=== PATIENT | female | born 1990 | race Caucasian/White ===

== ENCOUNTER 2020-11-04 11:52 | Outpatient (REF) | payer OTHER, SELFPAY ==
[2020-11-05 01:26] LABS: Rubella IgG Antibody 4.12 Index
[2020-11-05 04:31] LABS: HBc Num1 0.11 S/CO (0.00-0.79); Hepatitis B Core Antibody Nonreactive (Nonreactive)
[2020-11-05 04:46] LABS: HBS Num1 8.22 mIU/mL (0-7.99); HBsAGNum1 0.37 S/CO (0.00-0.99); Hepatitis B Surface Antigen Negative (Negative)
[2020-11-05 05:28] LABS: HBS Num2 8.22 mIU/mL (0-7.99); HBS Num3 7.64 mIU/mL (0-7.99); ~Hepatitis B Surface Antibody GRAYZONE (Nonreactive)
[2020-11-09 10:52] LABS: TS Negative Control Passed; TS Panel A 0; TS Panel B 0; TS Positive Control Passed; TSpotTB Negative (SeeBelow)
== END 2020-11-04 11:53 | disposition home or self-care (01) ==
LOC: HO.LAB 11:52
PROVIDERS: PCP Internal Medicine; Visit Provider Internal Medicine
DX: Z01.84 Encounter for antibody response examination (principal)
CPT/HCPCS: 36415; 86481; 86704; 86706; 86735; 86762; 86765; 86787; 87340

== ENCOUNTER 2020-12-31 06:52 | Outpatient (REF) | payer OTHER, SELFPAY ==
[2020-12-31 07:15] LABS: MANUAL DIFF FLAG NO
[2020-12-31 07:18] LABS: Glucose Urine UA NEG (NEG); Leukocyte Esterase Urine NEG (NEG); Nitrite Urine NEG (NEG); Specific Gravity - Urine 1.025 (1.005-1.025); Urine Blood 3+ (NEG); Urine Ketones NEG (NEG); Urine Protein NEG (NEG-TRACE)
[2020-12-31 07:19] LABS: Basophils Absolute Auto 0.1 X10*3/uL (0.0-0.2); Basophils Percent Auto 0.6 % (0-2); Eosinophils Absolute Auto 0.4 X10*3/uL (0.0-0.4); Eosinophils Percent Auto 4.3 % (0-4); Hematocrit 40.3 % (37-47); Hemoglobin 13.5 g/dl (12.0-16.0); Imm Gran Abs Auto 0.03 X10*3/uL (0.00-0.03); Imm Gran Pct Auto 0.4 % (0.0-0.4); Lymphocytes Absolute Auto 3.3 X10*3/uL (1.2-4.9); Mean Corpuscular HGB Conc 33.5 g/dl (31.0-35.0); Mean Corpuscular Hemoglobin 30.6 pg (27.0-33.0); Mean Corpuscular Volume 91.4 fL (80-98); Mean Platelet Volume 10.1 fL (9.4-12.3); Monocytes Absolute Auto 0.4 X10*3/uL (0.1-1.2); Monocytes Percent Auto 5.1 % (2-11); Neutrophils Absolute Auto 4.3 X10*3/uL (2.0-8.3); Neutrophils Percent Auto 50.6 % (45-73); Platelet Count 316 X10*3/uL (160-400); Red Blood Count 4.41 X10*6/uL (4.20-5.50); Red Cell Distribution Width 12.8 % (11.0-16.0); White Blood Count 8.6 X10*3/uL (4.8-10.8)
[2020-12-31 07:26] LABS: Appearance Urine CLEAR; Color Urine YELLOW
[2020-12-31 08:01] LABS: Alanine Aminotransferase 11 U/L (0-31); Albumin Level 3.8 g/dL (3.5-5.0); Alkaline Phosphatase 68 U/L (39-117); Anion Gap 12 (12-20); Aspartate Amino Transferase 11 U/L (5-31); Bilirubin Total 0.4 mg/dL (0.0-1.0); Blood Urea Nitrogen 12 mg/dL (9-16); Carbon Dioxide 24 mmol/L (22-29); Chloride 110 mmol/L (96-108); Cholesterol 222 mg/dL; Estimated Glomerular Filt Rate > 60; Glucose Fasting 91 mg/dL (60-99); HDL Cholesterol 50 mg/dL; LDL Cholesterol Calculated 129 mg/dl; Potassium 4.1 mmol/L (3.3-5.1); Sodium 142 mmol/L (135-145); Total Protein 6.8 g/dL (6.5-8.0); Triglycerides 218 mg/dL
[2020-12-31 08:21] LABS: TSH reflex Free T4 1.33 uIU/mL (0.32-4.0)
[2020-12-31 08:46] LABS: Mucus Urine TRACE /LPF; Squamous Epithelial Cell Urine TRACE /LPF; WBC Urine 0-2 /HPF (0-4)
== END 2020-12-31 06:53 | disposition home or self-care (01) ==
LOC: HO.LAB 06:52
PROVIDERS: PCP Internal Medicine; Visit Provider Internal Medicine
DX: Z00.00 Encounter for general adult medical examination without abnormal findings (principal); E78.00 Pure hypercholesterolemia, unspecified; E66.9 Obesity, unspecified
CPT/HCPCS: 36415; 80053; 80061; 81001; 84443; 85025

== ENCOUNTER 2021-07-02 08:54 | Outpatient (REF) | payer OTHER, SELFPAY | END 2021-07-02 08:55 | disposition home or self-care (01) | LOC: HO.LAB 08:54 | PROVIDERS: PCP Internal Medicine; Visit Provider Internal Medicine | DX: Z20.822 Contact with and (suspected) exposure to COVID-19 (principal) | CPT/HCPCS: C9803; U0003; U0005 ==

== ENCOUNTER 2023-05-01 08:50 | Outpatient (AMB) | payer OTHER, SELFPAY ==
[2023-05-01 08:53] VITALS: BP 122/80; PULSE 87; O2SAT 99; BMI 35.7
--- NOTE | 2023-05-01 08:53 | MHC.PC.OV ---
Vital Signs 05/01/23 08:53 Height 5 ft 2 in Weight 195 lb 4 oz BMI 35.7 BP 122/80 Blood Pressure Location Lt brachial Position Sitting Pulse 87 Pulse Source Pulse Oximeter Pulse Oximetry (%) 99 Oxygen Delivery Method Room Air Intake Visit Reasons: pe Motors And Controls Tester Required: No Accompanied by: Self / Same As Patient Allergies bee sting Allergy (Severe, Uncoded 05/01/23 09:51) Anaphylaxis Medication List - Last Reconciled 05/01/23 by Karl Marquez MD albuterol sulfate 90 mcg/actuation (ProAir HFA) 2 puffs inhalation Q6H PRN 30 days epinephrine (EpiPen 2-Heladio) 0.3 mg (0.3 mL) IM Q4H PRN loratadine 10 mg PO DAILY PRN 90 days Tobacco use date assessed: 05/01/23 Dental Screening Dental Screen Date: 05/01/23 Did you have a dental visit in the last 12 months?: Yes Did you have a dental problem in the last 6 months where you did not have access to dental care?: No Was dental information given to patient?: Patient has dentist HPI pe HPI Details Patient comes in today for her annual physical examination States that she feels okay She denies any headaches or dizziness Denies any chest pains, no SOB - notes that her asthma and allergies have been well-controlled lately and she hardly has to use her rescue inhaler lately No nausea/vomiting, no abdominal pain No change in bowel habits noted Denies any acute urinary symptoms States that she sleeps well at night Had her pap smear / stave and bolt equalizer exam and some labs done at [facility] about 3 months ago - was reportedly told that her labs came out okay States that she will try to get those reports sent over to us for review so she does not have to get any more labs done if she does not need to [facility] Medical History Bee sting allergy Pure hypercholesterolemia Allergic rhinitis WILFREDO II (cervical intraepithelial neoplasia II) Anxiety and depression Migraine Lumbar arthropathy Obesity (BMI 30-39.9) Asthma Vitamin D deficiency Surgical History History of excision of mass History of nasal polypectomy History of D&C Family History Father Hypertension CVD (cardiovascular disease) Lymphoma Past heart attack Mother Hypertension Epilepsy Son ADHD Brother Epilepsy Sister Epilepsy Maternal Grandmother Diabetes Paternal Grandmother No problems noted. Maternal Uncle Diabetes Maternal Aunt Diabetes Paternal Aunt Diabetes Breast cancer Daughter In good health Social History Housing: House Alcohol intake: current Alcohol intake frequency: holidays/special occasions only Patient Tobacco Use Status: Former Tobacco user Tobacco use type: Cigarette Second Hand Smoke Exposure: Yes Substance Use Type: Marijuana service: No Current occupational status: employed ([employer]) Cognitive needs: No Hearing needs: No Vision needs: Yes Questionnaire PHQ-9 Over the last 2 weeks, how often have you been bothered by any of the following problems? 1. Little interest or pleasure in doing things: not at all 2. Feeling down, depressed, or hopeless: not at all 3. Trouble falling or staying asleep, or sleeping too much: not at all 4. Feeling tired or having little energy: not at all 5. Poor appetite or overeating: not at all 6. Feeling bad about yourself - or that you are a failure or have let yourself or your family down: not at all 7. Trouble concentrating on things, such as reading the newspaper or watching television: not at all 8. Moving or speaking so slowly that other people could have noticed. Or the opposite - being so fidgety or restless that you have been moving around a lot more than usual: not at all 9. Thoughts that you would be better off or of hurting yourself in some way: not at all Total score: 0 Depression Screening Interpretation: Negative [id number] - PHQ-9 Billing: Yes Source: Developed by Drs. Eamon Barr, Amarilis Greenberg, Ricky Perez and colleagues, with an educational julio from [employer]. Thrive Questionnaire Date Thrive assessed: 05/01/23 I am a: Patient What is your living situation today?: I have a steady place to live Within the past 12 months, did the food you bought not last and you didn't have the money to get more?: Never true Within the past 12 months, did you worry whether your food would run out before you got money to buy more?: Never true Do you have trouble paying for medicines?: No Do you have trouble getting transportation to medical appointments?: No Do you have trouble paying your heating and electricity bill?: No Do you have trouble taking care of your child, family member or friend?: No Do you have trouble with day-to-day activities such as bathing, preparing meals, shopping, managing finances, etc.?: No Are you currently unemployed and looking for a job?: No Are you interested in more education?: No Please select the resources that you would like help with: None Currently or been in a relationship where the following occur: no concerns reported AUDIT C Alcohol Use Questionnaire (AUDIT-C) 1. How often do you have a drink containing alcohol?: Monthly or less 2. How many drinks containing alcohol do you have on a typical day when you are drinking?: 1 or 2 3. How often do you have six or more drinks on one occasion?: Never Total Score: 1 Score Reviewed/Action Taken: Yes RODNEY-7 AMB Questionnaire RODNEY-7 Date RODNEY - 7 assessed: 05/01/23 Feeling nervous, anxious, or on edge: 0 = Not at all Not being able to stop or control worryin = Not at all Worrying too much about different things: 0 = Not at all Trouble relaxin = Not at all Being so restless that it is hard to sit still: 0 = Not at all Becoming easily annoyed or irritable: 0 = Not at all Feeling afraid as if something awful might happen: 0 = Not at all Total RODNEY-7 score (0-4 normal; 5-9 mild; 10-14 moderate; 15-21 severe): 0 Source: Developed by Drs. Eamon Barr, Amarilis Greenberg, Ricky Perez and colleagues, with an educational julio from [employer]. Review of Systems Const Denies chills, Denies fatigue, Denies fever(s), Denies headache(s) and Denies malaise Eyes Denies blurry vision, Denies change in vision, Denies irritation and Denies itchy eyes ENT Denies dysphagia, Denies dizziness, Denies otalgia, Denies headache(s), Denies nasal congestion, Denies neck pain, Denies odynophagia, Denies sinus pain and Denies sore throat Card Denies chest pain, Denies rapid heart rate, Denies irregular heart rhythm, Denies palpitations and Denies dyspnea Resp Denies chest congestion, Denies cough, Denies dyspnea and Denies wheezing GI Denies abdominal pain, Denies bloating, Denies constipation, Denies dysphagia, Denies heartburn, Denies diarrhea, Denies nausea, Denies odynophagia and Denies vomiting Denies hematuria, Denies urinary frequency, Denies dysuria, Denies urinary incontinence and Denies urinary urgency Musc Denies back pain, Denies arthralgias, Denies joint swelling, Denies muscle weakness and Denies neck pain Skin/Breast Denies breast pain, Denies breast mass, Denies change in pigmentation, Denies lesions, Denies rash and Denies unusual bruising Neuro Denies dizziness, Denies headache(s) and Denies paresthesias Psych Denies anxiety and Denies depression Endo Denies fatigue and Denies palpitations [place]/Lymph Denies easy bruising Aller/Immun Denies itchy eyes and Denies wheezing Physical exam (Primary Care) Vital Signs: Last Vital Signs Pulse 87 05/01/23 08:53 BP 122/80 05/01/23 08:53 Pulse Ox 99 05/01/23 08:53 Oxygen Delivery Method Room Air 05/01/23 08:53 BMI result Body Mass Index 35.7 Tobacco/Smoking Status: Tobacco use Status Tobacco use date assessed 05/01/23 05/01/23 08:58 Patient Tobacco Use Status Former Tobacco user 05/01/23 08:58 Tobacco use type Cigarette 05/01/23 08:58 PHQ-9: PHQ-9 Score PHQ-9: Total score 0 05/01/23 09:55 Depression Screening Interpretation: Negative Thrive Assessment: Date of Thrive Assessment Date Thrive assessed 05/01/23 05/01/23 08:58 Currently or been in a relationship where the following occur: no concerns reported Const General: no acute distress, alert and awake Orientation/consciousness: patient oriented x3 HENMT Head: Yes normocephalic and Yes atraumatic Ears: external ears normal, TM's normal bilaterally and EAC's normal General nose exam: No nasal discharge present Face and sinus: Yes normal facial exam and Yes sinuses nontender Teeth and gingiva: dentition normal Throat: Yes posterior oropharynx normal and Yes tonsils normal (no TP congestion) Eyes Eyelids: Yes eyelids normal Conjunctivae: conjunctivae normal Pupils: Equal, round and reactive pupils present EOM: EOMs intact bilaterally Neck Neck: Yes no lymphadenopathy and Yes supple Thyroid: Thyroid normal Resp Auscultation: clear to auscultation bilaterally, no rales and no wheezes Cardio Rate: regular rate Rhythm: regular rhythm Heart sounds: no murmurs GI Palpation (GI): Soft to palpation, nontender and No hepatosplenomegaly present Auscultation: normal bowel sounds General: Yes no CVA tenderness Back/Spine/Pelvis Back: no CVA tenderness Thoracic/Lumbar Spine: thoracic and lumbar spine normal to inspection Skin Lesions: no lesions Rashes: no rashes Neuro General: patient oriented x3, moves all extremities, no focal motor deficits and CN's II-XI intact bilaterally Cranial nerves: Yes Equal, round and reactive pupils present Cognition (Neuro): normal cognition Gait exam (Neuro): Normal gait present Extrem General: Yes no clubbing, cyanosis or edema Office Procedures Flu Questionnaire Does the patient have a severe egg allergy?: No Immunizations flu vacc [id number] 6mos up(PF) 60 mcg(15 mcgx4)/0.5 mL IM syringe Performing Provider: Karl Marquez MD [facility] Documented (not given) by: Allyssa Bonilla on 05/01/23 08:59 Reason Not Given: Received Previously Assessment and Plan Assessment & Plan (1) Annual physical exam: Code(s): Z00.00 - Encounter for general adult medical examination without abnormal findings Plan: Patient reportedly had some labs done at [facility] about 3 months ago and was told that her labs came out okay States that she will try to arrange for these to be sent over to us for review and prefers not to have any more labs done unless she has to She is up-to-date with her annual stave and bolt equalizer exam and pap smear - just had them done at [facility] 3 months ago States that she already received her flu shot from [facility] a couple of weeks ago (2) Asthma: Code(s): J45.909 - Unspecified asthma, uncomplicated Qualifiers: Asthma severity: mild Asthma persistence: intermittent Asthma complication type: uncomplicated Qualified Code(s): J45.20 - Mild intermittent asthma, uncomplicated Plan: Stable Continue Albuterol HFA 2 inhalations every 6 hours as needed - states that she has not had to use her inhaler in a while now (3) Migraine: Code(s): G43.909 - Migraine, unspecified, not intractable, without status migrainosus Qualifiers: Migraine type: unspecified Status migrainosus presence: without status migrainosus Intractability: not intractable Qualified Code(s): G43.909 - Migraine, unspecified, not intractable, without status migrainosus Plan: Stable Reinforced avoidance of migraine triggers Was taking Fioricet or OTC migraine headache meds PRN for symptomatic relief - states that she only has about 1 to 2 episodes of headaches a month and they are mostly mild and she has not needed to take any Rx so far lately (4) Pure hypercholesterolemia: Code(s): E78.00 - Pure hypercholesterolemia, unspecified Plan: Reinforced low cholesterol diet LDL cholesterol was at 129 mg/dl when last checked a couple of years ago Will try to obtain a copy of her recent lab results done at [facility] about 3 months ago for review Advised patient that if her labs done a few months ago did not include a cholesterol level, then we may still need her to go and get some additional labs done (5) Allergic rhinitis: Code(s): J30.9 - Allergic rhinitis, unspecified Qualifiers: Allergic rhinitis trigger: pollen Allergic rhinitis seasonality: seasonal Qualified Code(s): J30.1 - Allergic rhinitis due to pollen Plan: Continue Loratadine 10 mg QD PRN (6) Bee sting allergy: Code(s): Z91.030 - Bee allergy status Plan: Cautioned again that avoidance is still the best prevention and reminded that she needs to keep her Epipen injector with her at all times (7) Anxiety and depression: Code(s): F41.9 - Anxiety disorder, unspecified; F32.9 - Major depressive disorder, single episode, unspecified Plan: Follow up with therapist/counselor regularly as scheduled Used to take Escitalopram but states that she stopped taking this a couple of years ago and now just smokes some marijuana when needed to help control her anxiety (8) Obesity (BMI 30-39.9): Code(s): E66.9 - Obesity, unspecified Plan: Reinforced diet/exercise as tolerated/lose weight Plan To return in 1 year for her next annual physical examination Orders: Orders Influenza [id number] Immunization Today Z23 - Encounter for immunization Coding Level of Care Code Est Pt Prev Care 18-39y([id number]) Diagnoses Annual physical exam Z00.00 Mild intermittent asthma without complication J45.20 Asthma severity: mild Asthma persistence: intermittent Asthma complication type: uncomplicated Migraine without status migrainosus, not intractable, unspecified migraine type G43.909 Migraine type: unspecified Status migrainosus presence: without status migrainosus Intractability: not intractable Pure hypercholesterolemia E78.00 Seasonal allergic rhinitis due to pollen J30.1 Allergic rhinitis trigger: pollen Allergic rhinitis seasonality: seasonal Bee sting allergy Z91.030 Anxiety and depression F41.9; F32.9 Obesity (BMI 30-39.9) E66.9
== END 2023-05-01 09:55 | disposition home or self-care (01) ==
PROVIDERS: PCP Internal Medicine; Visit Provider Internal Medicine
DX: Z00.00 Encounter for general adult medical examination without abnormal findings (principal); J45.20 Mild intermittent asthma, uncomplicated; G43.909 Migraine, unspecified, not intractable, without status migrainosus; E78.00 Pure hypercholesterolemia, unspecified; J30.1 Allergic rhinitis due to pollen; F41.9 Anxiety disorder, unspecified
CPT/HCPCS: 99395

== ENCOUNTER 2023-07-19 08:52 | Outpatient (AMB) | payer OTHER, SELFPAY ==
[2023-07-19 08:57] VITALS: BP 116/76; RESP 17; BMI 35.7
--- NOTE | 2023-07-19 08:57 | A.OFFPC_ITS ---
Vital Signs 07/19/23 08:57 Height 5 ft 2 in Weight 195 lb 4 oz BMI 35.7 BP 116/76 Blood Pressure Location Lt brachial Position Sitting Respiration 17 Pulse Source Pulse Oximeter Oxygen Delivery Method Room Air Intake Visit Reasons: Left knee pain Intake Note: Pt is here for Left knee pain since 30 of June. Director Of Transportation Required: No Accompanied by: Self / Same As Patient Is last menstrual period known: Yes Last menstrual period: 06/17/23 Allergies bee sting Allergy (Severe, Uncoded 07/19/23 09:33) Anaphylaxis Medication List - Last Reconciled 07/19/23 by Mario Morales PA-C albuterol sulfate 90 mcg/actuation (ProAir HFA) 2 puffs inhalation Q6H PRN 30 days epinephrine (EpiPen 2-Heladio) 0.3 mg (0.3 mL) IM Q4H PRN loratadine 10 mg PO DAILY PRN 90 days Tobacco use date assessed: 05/01/23 Dental Screening Dental Screen Date: 07/19/23 Did you have a dental visit in the last 12 months?: Yes Did you have a dental problem in the last 6 months where you did not have access to dental care?: No Was dental information given to patient?: Patient has dentist HPI Left knee pain HPI Details Patient is a 33-year-old female here today for problem visit. She reports having left knee pain over the last 3 weeks. She reports an incident where she hyperflexed her left knee and has since had di scomfort in the anterior aspect of her left knee. She reports no pain though has a weird sensation over her left knee when flexing. She has not done any ofou-jmo-yoftnby NSAIDs or cool compress at this time. [facility] Medical History Bee sting allergy Pure hypercholesterolemia Allergic rhinitis WILFREDO II (cervical intraepithelial neoplasia II) Anxiety and depression Migraine Lumbar arthropathy Obesity (BMI 30-39.9) Asthma Vitamin D deficiency Surgical History History of excision of mass History of nasal polypectomy History of D&C Family History Father Hypertension CVD (cardiovascular disease) Lymphoma Past heart attack Mother Hypertension Epilepsy Son ADHD Brother Epilepsy Sister Epilepsy Maternal Grandmother Diabetes Paternal Grandmother No problems noted. Maternal Uncle Diabetes Maternal Aunt Diabetes Paternal Aunt Diabetes Breast cancer Daughter In good health Social History Housing: House Alcohol intake: current Alcohol intake frequency: holidays/special occasions only Patient Tobacco Use Status: Former Tobacco user Tobacco use type: Cigarette e-Cigarette/Vaping Use: Never Used Second Hand Smoke Exposure: Yes Substance Use Type: Marijuana service: No Current occupational status: employed ([employer]) Cognitive needs: No Hearing needs: No Vision needs: Yes Female Reproductive History Menstrual Date of last menstrual period: 06/17/23 Questionnaire Thrive Questionnaire Date Thrive assessed: 05/01/23 RODNEY-7 AMB Questionnaire RODNEY-7 Date RODNEY - 7 assessed: 05/01/23 Source: Developed by Drs. Eamon Barr, Amarilis Greenberg, Ricky Perez and colleagues, with an educational julio from [employer]. Review of Systems Const Denies headache(s) Eyes Denies loss of vision ENT Denies vertigo, Denies dizziness, Denies headache(s) and Denies sore throat Card Denies chest pain, Denies leg edema and Denies lightheadedness Resp Denies cough, Denies hemoptysis and Denies wheezing GI Denies abdominal pain, Denies melena, Denies constipation, Denies diarrhea and Denies vomiting Denies urinary frequency, Denies dysuria and Denies urinary urgency Musc Denies arthralgias, Denies joint swelling, Denies numbness and Denies tingling Neuro Denies Abnormal speech present, Denies behavioral changes, Denies vertigo, Denies dizziness, Denies headache(s), Denies loss of vision, Denies memory loss, Denies numbness and Denies tingling Psych Denies anxiety, Denies behavioral changes, Denies depression, Denies memory loss and Denies panic attacks [place]/Lymph Denies easy bleeding and Denies easy bruising Aller/Immun Denies wheezing Physical exam (Primary Care) Vital Signs: Last Vital Signs Resp 17 07/19/23 08:57 BP 116/76 07/19/23 08:57 Oxygen Delivery Method Room Air 07/19/23 08:57 BMI result Body Mass Index 35.7 Tobacco/Smoking Status: Tobacco use Status Tobacco use date assessed 05/01/23 07/19/23 08:58 Patient Tobacco Use Status Former Tobacco user 07/19/23 08:58 Tobacco use type Cigarette 07/19/23 08:58 e-Cigarette/Vaping Use Never Used 07/19/23 09:24 Thrive Assessment: Date of Thrive Assessment Date Thrive assessed 05/01/23 07/19/23 08:58 Const General: healthy appearing, no acute distress, alert and awake Nutritional Appearance: well nourished Orientation/consciousness: oriented to person, oriented to place and oriented to time HENMT Ears: TM's normal bilaterally General nose exam: Normal nasal mucous membranes and turbinates present Eyes Conjunctivae: conjunctivae normal Sclerae: sclerae normal Pupils: Equal, round and reactive pupils present Neck Neck: Yes no lymphadenopathy and Yes no JVD Thyroid: Thyroid normal Carotids: no bruits Resp Effort & Inspection: normal respiratory effort and not tachypneic Auscultation: no crackles, no rales, no rhonchi and no wheezes Cardio Rate: regular rate Rhythm: regular rhythm Heart sounds: no murmurs and normal S1 and S2 GI Palpation (GI): Soft to palpation, nontender, no hepatomegaly and no splenomega ly Auscultation: normal bowel sounds Skin General skin exam: no rashes or lesions noted and dry skin Neuro General: oriented to person, oriented to place and oriented to time Cranial nerves: Yes Equal, round and reactive pupils present Speech: No Abnormal speech present Gait exam (Neuro): Normal gait present Motor exam (neuro): no tremor noted Extrem Right upper extremity: full ROM Left upper extremity: full ROM Right lower extremity: full ROM; no edema Left lower extremity: full ROM; no edema Psych Mental Status: mental status grossly normal Speech and movement: Normal speech and movement present Affect: normal affect Attitude: cooperative Thought process: Normal thought process present Assessment and Plan Assessment & Plan (1) Patella-femoral syndrome: Code(s): M22.2X9 - Patellofemoral disorders, unspecified knee Qualifiers: Laterality: left Qualified Code(s): M22.2X2 - Patellofemoral disorders, left knee Plan: Patient with a 3 week history left knee discomfort worse when going up and down stairs and flexing the knee. Labs and symptoms are concerning for tendon issue in the anterior aspect of the knee. Will likely benefit from physical therapy. Will send for x-ray to evaluate for joint effusion. Will supply her with diclofenac , advised on cool compress and resting the knee. Orders: Orders XR knee LT 3V Today M22.2X2 - Patellofemoral disorders, left knee PT Evaluation and Treatment Today M22.2X2 - Patellofemoral disorders, left knee Medications: New diclofenac sodium 75 mg PO BID 10 days 20 tabs 0RF M22.2X2 - Patellofemoral disorders, left knee Coding Level of Care Code Est Pt Level 3 (32988) Diagnoses Patellofemoral pain syndrome of left knee M22.2X2 Laterality: left
== END 2023-07-19 10:33 | disposition home or self-care (01) ==
PROVIDERS: PCP Internal Medicine; Visit Provider Physician Assistant
DX: M22.2X2 Patellofemoral disorders, left knee (principal)
CPT/HCPCS: 99213

== ENCOUNTER 2023-07-19 09:48 | Outpatient (REF) | payer OTHER, SELFPAY ==
--- NOTE | ~2023-07-19 | XR_ITS ---
EXAMINATION: XR KNEE, LEFT CLINICAL INFORMATION: Patellofemoral disorder. COMPARISON: Radiographs dated 11/19/2011. TECHNIQUE: AP, lateral and sunrise views of the left knee are submitted. FINDINGS: No fracture or joint effusion. Alignment is anatomic. Joint spaces are maintained. No abnormal soft tissue calcification. XR/XR knee LT 3V IMPRESSION: Normal left knee.
== END 2023-07-19 09:49 | disposition home or self-care (01) ==
LOC: HO.XRAY 09:48
PROVIDERS: PCP Internal Medicine; Visit Provider Physician Assistant
DX: M22.2X2 Patellofemoral disorders, left knee (principal)
CPT/HCPCS: 73562

== ENCOUNTER 2023-11-01 09:00 | Outpatient (RCR) | payer OTHER, SELFPAY ==
--- NOTE | 2023-09-21 11:39 | MHC.PT.EP ---
[facility] [place] Office [place] Office [place] Office [address] [phone] F: [phone] F: [phone] F: [phone] F: [phone] Physical Therapy Plan of Care Date of Evaluation: 09/20/23 Date of Surgery: Diagnosis: LEFT knee patellofemoral knee pain (MD Dx) (RS) Assessment: Patient is a pleasant 33 y.o. female who is referred to PT by Mario Morales PA-C, with Dx of LEFT knee patellofemoral pain. She does present with muscle imbalances in L knee and hip, causing compensation and likely bursitis when injury first occurred. Patient impairments include antalgic gait, weakness, pain upon palpation.Patient current functional limitations are squatting, ascend/descend stairs, sit to stand after prolonged sitting. Patient will benefit from skilled PT to address aforementioned impairments and functional limitations to meet established goals. Frequency and Duration: The patient will be seen 2x/week for 4 weeks Short Term Goals: 2 weeks Patient demonstrates consistency and independence with HEP to self manage symptoms. 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 Patient presents with increased LEFT hip glute med strength 5/5 to be able to ascend/descend 1 flight of stairs reciprocally. Treatment Plan: Modalities to reduce pain, spasms and effusion. Manual therapy to restore motion and function. Therapeutic exercise to improve strength and flexibility. Neuromuscular re-education for posture and balance. Therapeutic activities to return to functional activities of daily living. Electronically signed by: Ofelia Hart, PT, DPT Please sign and return to therapist. Thank you for your referral.
--- NOTE | 2023-11-01 09:59 | MHC.PT.DC ---
[facility] [place] Office [place] Office [place] Office [address] [phone] F: [phone] F: [phone] F: [phone] F: [phone] Physical Therapy Discharge Report Diagnosis: LEFT knee patellofemoral knee pain ( Dx) (RS) Date of Surgery: Date of Evaluation: 09/20/23 Date of Discharge: 11/01/23 Treatments to Date: 6 Cancellations to Date: No Shows to Date: Discharge Status: Achieved Goals Improved Function Independent with HEP Discharge Summary: Eugenie has shown significant improvement with PT interventions. She is able to self manage her sxs with exercise. She presents with full L knee AROM and full L knee and hip strength. She is appropriate for discharge today to independent HEP. Electronically signed by: Ofelia Hart, PT, DPT Please sign and return to therapist. Thank you for your referral.
== END 2023-11-01 09:59 | disposition home or self-care (01) ==
LOC: HO.PT 09:00
PROVIDERS: PCP Internal Medicine; Visit Provider Physician Assistant
DX: M22.2X2 Patellofemoral disorders, left knee (principal)
CPT/HCPCS: 97035; 97110; 97140; 97161; 97530

== ENCOUNTER 2024-03-24 19:35 | Emergency (ER) | payer OTHER, SELFPAY ==
--- NOTE | ~2024-03-24 | XR_ITS ---
EXAMINATION: XR FOOT, LEFT CLINICAL INFORMATION: Left foot injury with pain and swelling COMPARISON: None available. TECHNIQUE: AP, lateral, and oblique views of the left foot. FINDINGS: Dorsal soft tissue swelling.. No fracture. Alignment is anatomic. Joint spaces are maintained. XR/XR foot LT min 3V IMPRESSION: Dorsal soft tissue swelling. No acute fractures. Electronically signed by: Jc Cervantes MD 03/24/2024 08:56 PM EDT RP
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
[2024-03-24 19:40] VITALS: BP 140/84; PULSE 87; RESP 18; TEMP 36.7; O2SAT 99; BMI 35.1
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
[2024-03-24 19:59] LABS: MANUAL DIFF FLAG NO
[2024-03-24 20:01] LABS: Basophils Absolute Auto 0.1 X10*3/uL (0.0-0.2); Basophils Percent Auto 0.8 % (0-2); Eosinophils Absolute Auto 0.3 X10*3/uL (0.0-0.4); Eosinophils Percent Auto 2.9 % (0-4); Hematocrit 37.3 % (37.0-47.0); Hemoglobin 12.3 g/dl (12.0-16.0); Imm Gran Abs Auto 0.03 X10*3/uL (0.00-0.03); Imm Gran Pct Auto 0.3 % (0.0-0.4); Lymphocytes Absolute Auto 3.4 X10*3/uL (1.2-4.9); Lymphocytes Percent Auto 33.3 % (20-40); Mean Corpuscular Hemoglobin 29.9 pg (27.0-33.0); Mean Corpuscular Volume 90.8 fL (80.0-98.0); Mean Platelet Volume 9.9 fL (9.4-12.3); Monocytes Absolute Auto 0.6 X10*3/uL (0.1-1.2); Neutrophils Absolute Auto 5.7 x10*3/uL (2.0-8.3); Neutrophils Percent Auto 56.7 % (45-73); Platelet Count 295 X10*3/uL (160-400); Red Blood Count 4.11 X10*6/uL (4.20-5.50); Red Cell Distribution Width 14.7 % (11.0-16.0); White Blood Count 10.1 X10*3/uL (4.8-10.8)
[2024-03-24 20:32] LABS: Alanine Aminotransferase 13 U/L (0-31); Alkaline Phosphatase 66 U/L (39-117); Anion Gap 11 (12-20); Aspartate Amino Transferase 14 U/L (5-31); Bilirubin Total 0.2 mg/dL (0.0-1.0); Blood Urea Nitrogen 14 mg/dL (9-16); C Reactive Protein 0.65 mg/dL (< or = 0.50); Calcium 9.5 mg/dL (8.4-10.2); Carbon Dioxide 26 mmol/L (22-29); Chloride 108 mmol/L (96-108); Creatinine Clr Calc Pharmacy 81.3; Estimated Glomerular Filt Rate > 60; Glucose Random 84 mg/dL (60-115); Potassium 3.9 mmol/L (3.3-5.1); Sodium 141 mmol/L (135-145); Total Protein 7.1 g/dL (6.5-8.0)
[2024-03-24 20:39] LABS: Erythrocyte Sedimentation Rate 16 MM/HR (0-20)
[2024-03-24 20:42] LABS: HCG Quantitative < 2 mIU/mL
[2024-03-25] MEDS: Doxycycline Monohydrate 100 MG CAPSULE PO (00:01)
[2024-03-25] MEDS: cephALEXin 500 MG CAPSULE PO (00:01)
[2024-03-25 00:06] VITALS: BP 144/89; PULSE 76; RESP 16; TEMP 36.9; O2SAT 99
== END 2024-03-25 00:10 | disposition home or self-care (01) ==
PROVIDERS: Registered Nurse Emergency; Emergency Provider Emergency Medicine; PCP Internal Medicine
DX: L03.116 Cellulitis of left lower limb (principal); M25.572 Pain in left ankle and joints of left foot; Z79.899 Other long term (current) drug therapy
CPT/HCPCS: 36415; 73610; 73630; 80053; 84702; 85025; 85652; 86140; 99282; 99283

== ENCOUNTER 2024-04-18 17:14 | Emergency (ER) | payer OTHER, SELFPAY ==
[2024-04-18 17:51] VITALS: BP 143/93; PULSE 71; RESP 16; TEMP 36.6; O2SAT 99; BMI 27.5
--- NOTE | 2024-04-18 17:52 | ED_ITS ---
HPI - General Adult General Chief complaint: General Medical Stated complaint: needle stick at work Time Seen by Provider: 04/18/24 18:02 Source: patient Mode of arrival: ambulatory Limitations: no limitations History of Present Illness ED Provider: Wicho Hanson PA-C HPI narrative: 34 yo female with history of anxiety and depression, HLD, asthma, obesity, presents to the ER for evaluation after she was stuck on her left thumb with a dirty needle after drawing blood at work. She works for the [employer] and was drawing blood for an HIV test. Patient has unknown HIV hepatitis status. They had consented for testing and blood was sent. Patient would like to get started on post exposure prophylaxis. She reports she was scraped at the base of tip of her right thumb and there was bleeding. This was done accidentally as she was trying to put a needle in the sharps container. She immediately washed the area with soap and water MD complaint: Accidental needle stick Onset (ago): hour(s) Location: right and upper extremity Severity: mild Relieving factors: none Exacerbating factors: none Associated symptoms: denies other symptoms Treatments prior to arrival: none Related Data Previous Rx's ?Medication ?Instructions ?Recorded albuterol sulfate 90 mcg/actuation 2 puff inhalation Q6H PRN 12/29/20 aerosol inhaler (ProAir HFA) shortness of breath or wheezing 30 days #18 grams loratadine 10 mg tablet 10 mg PO DAILY PRN allergy 12/29/20 symptoms 90 days #90 tabs epinephrine 0.3 mg/0.3 mL 0.3 mg (0.3 mL) IM Q4H PRN 01/05/22 injection, auto-injector (EpiPen anaphylaxis #2 ea 2-Heladio) diclofenac sodium 75 mg 75 mg PO BID 10 days #20 tabs 07/19/23 tablet,delayed release cephalexin 500 mg capsule 500 mg PO BID #20 caps 03/24/24 doxycycline monohydrate 100 mg 100 mg PO DAILY #20 tabs 03/24/24 tablet ibuprofen 600 mg tablet 600 mg PO TID PRN fever or pain 03/24/24 #20 tabs Allergies Allergy/AdvReac Type Severity Reaction Status Date / Time bee sting Allergy Severe Anaphylaxis Uncoded 04/18/24 17:52 Review of Systems 2 Review of Systems: Yes all other systems are reviewed and are negative PMFSH Past Medical History Medical History Bee sting allergy Pure hypercholesterolemia Allergic rhinitis WILFREDO II (cervical intraepithelial neoplasia II) Anxiety and depression Migraine Lumbar arthropathy Obesity (BMI 30-39.9) Asthma Vitamin D deficiency Surgical History History of excision of mass History of nasal polypectomy History of D&C Family History Family History Father Hypertension CVD (cardiovascular disease) Lymphoma Past heart attack Mother Hypertension Epilepsy Son ADHD Brother Epilepsy Sister Epilepsy Maternal Grandmother Diabetes Paternal Grandmother No problems noted. Maternal Uncle Diabetes Maternal Aunt Diabetes Paternal Aunt Diabetes Breast cancer Daughter In good health Social History Social History Housing: House Alcohol intake: current Alcohol intake frequency: holidays/special occasions only Patient Tobacco Use Status: Former Tobacco user Tobacco use type: Cigarette e-Cigarette/Vaping Use: Never Used Second Hand Smoke Exposure: Yes Substance Use Type: Marijuana Advance Directives: No Advance Directives Information Provided: No Do you have a plan to hurt others: No Plan service: No Current occupational status: employed ([employer]) Cognitive needs: No Hearing needs: No Vision needs: Yes Physical Exam ED Vital Signs: Vital Signs - 24 hr 04/18/24 17:51 04/18/24 19:52 Temperature 97.8 F 97.8 F Pulse Rate 71 71 Respiratory Rate 16 16 Blood Pressure 143/93 H 143/93 H Pulse Oximetry 99 99 Oxygen Delivery Method Room Air Room Air BMI result Body Mass Index 27.5 Appearance: Alert. Oriented X3. No acute distress. HEENT: normal inspection CVS: Normal heart rate and rhythm. Pulses normal. Respiratory: No respiratory distress. Skin: Skin warm and dry. Normal skin color. Normal skin turgor. No rashes. Extremities: Superficial scrape, less than 0.5 cm to the tip of the right thumb, no active bleeding Neuro: Oriented X 3. Grossly normal, nonfocal Medications Administered Discontinued Medications Generic Name Dose Route Start Last Admin Trade Name Freq PRN Reason Stop Dose Admin Diphtheria/Tetanus/Acell Pertussis 0.5 ml 04/18/24 17:56 04/18/24 19:50 Diphth,Pert(Acell),Tet Adult 0.5 Ml Syringe IM 04/18/24 17:57 0.5 ml .ONCE ONE Administration Raltegravir/Emtricitabine/Tenofovir 1 kit 04/18/24 17:55 04/18/24 19:51 Post Exposure Medication Kit PO 04/18/24 17:56 1 kit ONCE ONE Administration Medical Decision Making Medical Decision Making MDM Narrative: 34 yo female presenting to the ER for evaluation after an accidental needle stick at work while drawing blood on a 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 results will be in tomorrow she would like PEP. counseled on very low sick exposure and need for outpatient follow up and monitoring if she were to proceed with PEP she can get this done at her work, [employer] stable for d/c home with PEP kit Differential Diagnosis Differential Diagnoses: The differential diagnosis associated with the presentation includes high risk exposure, low risk exposure, blood bourne disease, hepaitits C/B/HIV Lab Data [facility] Lab Attestation statement: I reviewed the patient's lab results. mild leukocytosis, no anemia, normal LFTs, immunized against hep B 04/18/24 18:03 04/18/24 18:03 Labs: Lab Results 04/18/24 Range/Units 18:03 WBC 11.3 H (4.8-10.8) X10*3/uL RBC 4.25 (4.20-5.50) X10*6/uL Hgb 12.5 (12.0-16.0) g/dl Hct 38.1 (37.0-47.0) % MCV 89.6 (80.0-98.0) fL MCH 29.4 (27.0-33.0) pg MCHC 32.8 (31.0-35.0) g/dl RDW 14.6 (11.0-16.0) % Plt Count 293 (160-400) X10*3/uL MPV 10.0 (9.4-12.3) fL Immature Gran % (Auto) 0.3 (0.0-0.4) % Neut % (Auto) 61.8 (45-73) % Lymph % (Auto) 29.4 (20-40) % [place] % (Auto) 5.8 (2-11) % Eos % (Auto) 2.1 (0-4) % Baso % (Auto) 0.6 (0-2) % Lymph # (Auto) 3.3 (1.2-4.9) X10*3/uL [place] # (Auto) 0.7 (0.1-1.2) X10*3/uL Eos # (Auto) 0.2 (0.0-0.4) X10*3/uL Baso # (Auto) 0.1 (0.0-0.2) X10*3/uL Abs Immat Gran (auto) 0.03 (0.00-0.03) X10*3/uL Absolute Neuts (auto) 7.0 (2.0-8.3) x10*3/uL Absolute Nucleated RBC 0.000 (0.0-0.012) X10*3/uL Nucleated RBC % (auto) 0.0 (0.0-0.2) /100WBC Sodium 143 (135-145) mmol/L Potassium 3.8 (3.3-5.1) mmol/L Chloride 110 H (96-108) mmol/L Carbon Dioxide 28 (22-29) mmol/L Anion Gap 9 L (12-20) BUN 11 (9-16) mg/dL Creatinine 0.74 (0.5-1.4) mg/dL Estim Creat Clear Calc 103.5 Estimated GFR > 60 Random Glucose 96 (60-115) mg/dL Calcium 9.7 (8.4-10.2) mg/dL Magnesium 1.8 (1.6-2.6) mg/dL Total Bilirubin 0.3 (0.0-1.0) mg/dL Direct Bilirubin 0.1 (0.0-0.5) mg/dL AST 13 (5-31) U/L ALT 11 (0-31) U/L Alkaline Phosphatase 55 (39-117) U/L Total Protein 7.4 (6.5-8.0) g/dL Albumin 4.0 (3.5-5.0) g/dL Hepatitis A IgM Ab Nonreactive (Nonreactive) Hep Bs Antigen Negative (Negative) Hep Bs Antibody REACTIVE (Nonreactive) Hep B Core Total Ab Nonreactive (Nonreactive) Hepatitis C Ab (EIA) Nonreactive (Nonreactive) HIV 1&2 Ab/P24 Ag 4thGn Nonreactive (Nonreactive) Prescription Management I considered prescription management with: Antiviral Discharge Plan Discharge Clinical Impression: Accidental hypodermic needlestick injury Patient Disposition: Home, Self-Care Instructions: Needle Stick Injuries (ED) Additional Instructions: CDC recommends starting PEP within 72 hours of exposure follow up with the source's test results follow up with your doctor as needed If you develop new or worsening symptoms call 911 or come back to the ER for further evaluation. Prescriptions: No Action doxycycline monohydrate 100 mg tablet 100 mg PO DAILY Qty: 20 0RF cephalexin 500 mg capsule 500 mg PO BID Qty: 20 0RF ibuprofen 600 mg tablet 600 mg PO TID PRN (Reason: fever or pain) Qty: 20 0RF loratadine 10 mg tablet 10 mg PO DAILY PRN (Reason: allergy symptoms) 90 Days Qty: 90 1RF albuterol sulfate [ProAir HFA] 90 mcg/actuation HFA aerosol inhaler 2 puff inhalation Q6H PRN (Reason: shortness of breath or wheezing) 30 Days Qty: 18 5RF epinephrine [EpiPen 2-Heladio] 0.3 mg/0.3 mL auto-injector 0.3 mg IM Q4H PRN (Reason: anaphylaxis) Qty: 2 0RF diclofenac sodium 75 mg tablet,delayed release (DR/EC) 75 mg PO BID 10 Days Qty: 20 0RF Interventions: ED Discharge Assessment Last Done: 04/18/24 19:52 Discharge Date/Time: 04/18/24 19:54 Print Language: New Zealander
[2024-04-18 18:09] LABS: MANUAL DIFF FLAG NO
[2024-04-18 18:15] LABS: Basophils Absolute Auto 0.1 X10*3/uL (0.0-0.2); Basophils Percent Auto 0.6 % (0-2); Eosinophils Absolute Auto 0.2 X10*3/uL (0.0-0.4); Eosinophils Percent Auto 2.1 % (0-4); Hematocrit 38.1 % (37.0-47.0); Hemoglobin 12.5 g/dl (12.0-16.0); Imm Gran Abs Auto 0.03 X10*3/uL (0.00-0.03); Imm Gran Pct Auto 0.3 % (0.0-0.4); Lymphocytes Absolute Auto 3.3 X10*3/uL (1.2-4.9); Lymphocytes Percent Auto 29.4 % (20-40); Mean Corpuscular HGB Conc 32.8 g/dl (31.0-35.0); Mean Corpuscular Hemoglobin 29.4 pg (27.0-33.0); Mean Corpuscular Volume 89.6 fL (80.0-98.0); Monocytes Absolute Auto 0.7 X10*3/uL (0.1-1.2); Monocytes Percent Auto 5.8 % (2-11); Neutrophils Percent Auto 61.8 % (45-73); Platelet Count 293 X10*3/uL (160-400); Red Blood Count 4.25 X10*6/uL (4.20-5.50); Red Cell Distribution Width 14.6 % (11.0-16.0); White Blood Count 11.3 X10*3/uL (4.8-10.8)
[2024-04-18 18:27] LABS: Alanine Aminotransferase 11 U/L (0-31); Alkaline Phosphatase 55 U/L (39-117); Anion Gap 9 (12-20); Aspartate Amino Transferase 13 U/L (5-31); Bilirubin Direct 0.1 mg/dL (0.0-0.5); Bilirubin Total 0.3 mg/dL (0.0-1.0); Blood Urea Nitrogen 11 mg/dL (9-16); Calcium 9.7 mg/dL (8.4-10.2); Carbon Dioxide 28 mmol/L (22-29); Chloride 110 mmol/L (96-108); Creatinine Clr Calc Pharmacy 103.5; Estimated Glomerular Filt Rate > 60; Glucose Random 96 mg/dL (60-115); Magnesium 1.8 mg/dL (1.6-2.6); Potassium 3.8 mmol/L (3.3-5.1); Sodium 143 mmol/L (135-145); Total Protein 7.4 g/dL (6.5-8.0)
[2024-04-18] MEDS: Diphth,Pertus(ACell),Tet Adult 0.5 ML SYRINGE IM (19:50)
[2024-04-18] MEDS: Post Exposure Medication Kit 1 KIT PO (19:51)
[2024-04-18 19:52] VITALS: BP 143/93; PULSE 71; RESP 16; TEMP 36.6; O2SAT 99
[2024-04-19 08:40] LABS: HBS Num1 > 1000.00 mIU/mL (0-7.99); HBc Num1 0.13 S/CO (0.00-0.79); HBsAGNum1 0.38 S/CO (0.00-0.99); HIV Num 1 10.99 S/CO (0.00-0.99); Hepatitis A Antibody IgM 0.11 Index (0-0.79); Hepatitis B Core Antibody Nonreactive (Nonreactive); Hepatitis B Surface Antigen Negative (Negative); ~HepC Num1 0.15 S/CO (0.00-0.79); ~Hepatitis A Antibody IgM Nonreactive (Nonreactive); ~Hepatitis B Surface Antibody REACTIVE (Nonreactive); ~Hepatitis C Antibody Nonreactive (Nonreactive)
[2024-04-19 09:33] LABS: HIV AB/AG Nonreactive (Nonreactive); HIV Num 2 0.04 S/CO; HIV Num 3 0.04 S/CO
== END 2024-04-18 19:54 | disposition home or self-care (01) ==
PROVIDERS: Physician Assistant; Emergency Provider Emergency Medicine; PCP Internal Medicine
DX: Z04.2 Encounter for examination and observation following work accident (principal); Z77.21 Contact with and (suspected) exposure to potentially hazardous body fluids; S60.311A Abrasion of right thumb, initial encounter; X58.XXXA Exposure to other specified factors, initial encounter; Y93.F9 Activity, other caregiving; Y92.538 Other ambulatory health services establishments as the place of occurrence of the external cause; Y99.0 Civilian activity done for income or pay; Z23 Encounter for immunization
CPT/HCPCS: 36415; 80048; 80076; 83735; 85025; 86704; 86706; 86709; 86803; 87340; 87389; 90471; 90715; 99282; 99284

== ENCOUNTER 2024-05-07 08:54 | Outpatient (REF) | payer OTHER, SELFPAY ==
[2024-05-07 10:13] LABS: MANUAL DIFF FLAG NO
[2024-05-07 10:53] LABS: Appearance Urine Clear; Color Urine Yellow; Glucose Urine UA Negative (Negative); Leukocyte Esterase Urine Negative (Negative); Nitrite Urine Negative (Negative); UMIC TRIGGER UACC YES; Urine Blood Moderate (2+) (Negative); Urine Ketones Negative (Negative); Urine Protein Negative (Neg-Trace)
[2024-05-07 10:59] LABS: Bacteria Urine None Seen (None Seen); Hyaline Casts Urine 0-2 /LPF (0-2); Squamous Epithelial Cell Urine 0-2 /HPF (0-2); WBC Urine 0-5 /HPF (0-5)
[2024-05-07 11:00] LABS: Basophils Absolute Auto 0.1 X10*3/uL (0.0-0.2); Basophils Percent Auto 0.8 % (0-2); Eosinophils Absolute Auto 0.2 X10*3/uL (0.0-0.4); Eosinophils Percent Auto 2.7 % (0-4); Hematocrit 39.7 % (37.0-47.0); Hemoglobin 13.4 g/dl (12.0-16.0); Imm Gran Abs Auto 0.05 X10*3/uL (0.00-0.03); Imm Gran Pct Auto 0.7 % (0.0-0.4); Lymphocytes Absolute Auto 2.6 X10*3/uL (1.2-4.9); Lymphocytes Percent Auto 34.4 % (20-40); Mean Corpuscular HGB Conc 33.8 g/dl (31.0-35.0); Mean Corpuscular Hemoglobin 30.2 pg (27.0-33.0); Mean Corpuscular Volume 89.4 fL (80.0-98.0); Mean Platelet Volume 10.5 fL (9.4-12.3); Monocytes Absolute Auto 0.5 X10*3/uL (0.1-1.2); Monocytes Percent Auto 6.8 % (2-11); Neutrophils Absolute Auto 4.1 x10*3/uL (2.0-8.3); Neutrophils Percent Auto 54.6 % (45-73); Platelet Count 309 X10*3/uL (160-400); Red Blood Count 4.44 X10*6/uL (4.20-5.50); Red Cell Distribution Width 14.4 % (11.0-16.0); White Blood Count 7.5 X10*3/uL (4.8-10.8)
[2024-05-07 11:27] LABS: Alanine Aminotransferase 14 U/L (0-31); Alkaline Phosphatase 65 U/L (39-117); Anion Gap 9 (12-20); Aspartate Amino Transferase 16 U/L (5-31); Bilirubin Total 0.5 mg/dL (0.0-1.0); Blood Urea Nitrogen 9 mg/dL (9-16); Calcium 9.1 mg/dL (8.4-10.2); Carbon Dioxide 27 mmol/L (22-29); Chloride 110 mmol/L (96-108); Cholesterol 223 mg/dL (<200); Estimated Glomerular Filt Rate > 60; Glucose Fasting 80 mg/dL (60-99); HDL Cholesterol 45 mg/dL (>40); LDL Cholesterol Calculated 139 mg/dL (<100); Potassium 3.8 mmol/L (3.3-5.1); Sodium 142 mmol/L (135-145); Triglycerides 197 mg/dL (<150)
[2024-05-07 11:45] LABS: TSH reflex Free T4 1.07 uIU/mL (0.32-4.0); Vitamin D 25-OH Total 31.7 ng/mL (>30)
== END 2024-05-07 08:55 | disposition home or self-care (01) ==
LOC: HO.LAB 08:54
PROVIDERS: PCP Internal Medicine; Visit Provider Internal Medicine
DX: Z00.00 Encounter for general adult medical examination without abnormal findings (principal); J45.20 Mild intermittent asthma, uncomplicated; G43.909 Migraine, unspecified, not intractable, without status migrainosus; E78.00 Pure hypercholesterolemia, unspecified; J30.1 Allergic rhinitis due to pollen; L30.9 Dermatitis, unspecified; N92.0 Excessive and frequent menstruation with regular cycle; F41.9 Anxiety disorder, unspecified; F32.9 Major depressive disorder, single episode, unspecified; E66.9 Obesity, unspecified; E55.9 Vitamin D deficiency, unspecified; D64.9 Anemia, unspecified; Z77.21 Contact with and (suspected) exposure to potentially hazardous body fluids; Z91.030 Bee allergy status
CPT/HCPCS: 36415; 80053; 80061; 81001; 82306; 84443; 85025; 96127; 99395

== ENCOUNTER 2024-05-07 08:54 | Outpatient (AMB) | payer OTHER, SELFPAY ==
[2024-05-07 09:03] VITALS: BP 120/86; PULSE 80; O2SAT 99; BMI 32.1
--- NOTE | 2024-05-07 09:03 | MHC.PC.OV ---
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: No Accompanied by: Self / Same As Patient Allergies bee sting Allergy (Severe, Uncoded 05/07/24 09:26) Anaphylaxis Medication List - Last Reconciled 05/07/24 by Karl Marquez MD albuterol sulfate 90 mcg/actuation (ProAir HFA) 2 puffs inhalation Q6H PRN 30 days diclofenac sodium 75 mg PO BID 10 days epinephrine (EpiPen 2-Heladio) 0.3 mg (0.3 mL) IM Q4H PRN ibuprofen 600 mg PO TID PRN loratadine 10 mg PO DAILY PRN 90 days Tobacco use date assessed: 05/07/24 Dental Screening Dental Screen Date: 05/07/24 Did you have a dental visit in the last 12 months?: Yes Did you have a dental problem in the last 6 months where you did not have access to dental care?: No Was dental information given to patient?: Patient has dentist HPI pe HPI Details Patient comes in today for her annual physical examination Feels that the eczema on her hands have getting worse lately, with increased itching when they flare up She has been using Cerave and some other OTC lotion to manage her eczema normally and states that they usually work okay She was involved in a needlestick accident at work a couple of weeks ago on 04/18/2024 - states that she was drawing blood from a patient and accidentally got stuck with the needle she was using (she works for [employer] in [place]) She came here to the ER to get checked as the accident occurred in the later part of the day and she was advised at her workplace that her test won't be processed until the next day Her initial tests came back negative and she was started on PrEP with Truvada She later found out that the patient that she was drawing blood from when she got stuck tested negative for HIV and hepatitis so she stopped taking her Truvada as instructed as she no longer needs to take any PrEP Patient adds that she is scheduled for a hysterectomy at [facility] next week on 05/14/2024 for heavy menstrual bleeding States that she feels okay otherwise She denies any headaches or dizziness Denies any chest pains, no SOB No nausea/vomiting, no abdominal pain No change in bowel habits noted She denies any acute urinary symptoms [facility] Medical History Bee sting allergy Pure hypercholesterolemia Allergic rhinitis WILFREDO II (cervical intraepithelial neoplasia II) Anxiety and depression Migraine Lumbar arthropathy Obesity (BMI 30-39.9) Asthma Vitamin D deficiency Surgical History History of excision of mass History of nasal polypectomy History of D&C Family History Father Hypertension CVD (cardiovascular disease) Lymphoma Past heart attack Mother Hypertension Epilepsy Son ADHD Brother Epilepsy Sister Epilepsy Maternal Grandmother Diabetes Paternal Grandmother No problems noted. Maternal Uncle Diabetes Maternal Aunt Diabetes Paternal Aunt Diabetes Breast cancer Daughter In good health Social History Housing: House Alcohol intake: current Alcohol intake frequency: holidays/special occasions only Patient Tobacco Use Status: Former Tobacco user Tobacco use type: Cigarette e-Cigarette/Vaping Use: Never Used Second Hand Smoke Exposure: Yes Substance Use Type: Marijuana service: No Current occupational status: employed ([employer]) Cognitive needs: No Hearing needs: No Vision needs: Yes Questionnaire PHQ-9 Over the last 2 weeks, how often have you been bothered by any of the following problems? 1. Little interest or pleasure in doing things: not at all 2. Feeling down, depressed, or hopeless: not at all 3. Trouble falling or staying asleep, or sleeping too much: not at all 4. Feeling tired or having little energy: not at all 5. Poor appetite or overeating: not at all 6. Feeling bad about yourself - or that you are a failure or have let yourself or your family down: not at all 7. Trouble concentrating on things, such as reading the newspaper or watching television: not at all 8. Moving or speaking so slowly that other people could have noticed. Or the opposite - being so fidgety or restless that you have been moving around a lot more than usual: not at all 9. Thoughts that you would be better off or of hurting yourself in some way: not at all Total score: 0 Depression Screening Interpretation: Negative Depression Screening Done: Yes 41337 - PHQ-9 Billing: Yes Source: Developed by Drs. Eamon Barr, Amarilis Greenberg, Ricky Perez and colleagues, with an educational julio from [employer]. Thrive Questionnaire Date Thrive assessed: 05/07/24 I am a: Patient What is your living situation today?: I have a steady place to live Within the past 12 months, did the food you bought not last and you didn't have the money to get more?: I choose not to answer this question Within the past 12 months, did you worry whether your food would run out before you got money to buy more?: I choose not to answer this question Do you have trouble paying for medicines?: No Do you have trouble getting transportation to medical appointments?: No Do you have trouble paying your heating and electricity bill?: No Do you have trouble taking care of your child, family member or friend?: No Do you have trouble with day-to-day activities such as bathing, preparing meals, shopping, managing finances, etc.?: No Are you currently unemployed and looking for a job?: No Are you interested in more education?: No Please select the resources that you would like help with: None Currently or been in a relationship where the following occur: No concerns reported THRIVE Score: 0 AUDIT C Alcohol Use Questionnaire (AUDIT-C) 1. How often do you have a drink containing alcohol?: Never 2. How many drinks containing alcohol do you have on a typical day when you are drinking?: 1 or 2 3. How often do you have six or more drinks on one occasion?: Never Total Score: 0 Score Reviewed/Action Taken: Yes RODNEY-7 AMB Questionnaire RODNEY-7 Date RODNEY - 7 assessed: 05/07/24 Feeling nervous, anxious, or on edge: 0 = Not at all Not being able to stop or control worryin = Not at all Worrying too much about different things: 0 = Not at all Trouble relaxin = Not at all Being so restless that it is hard to sit still: 0 = Not at all Becoming easily annoyed or irritable: 0 = Not at all Feeling afraid as if something awful might happen: 0 = Not at all Total RODNEY-7 score (0-4 normal; 5-9 mild; 10-14 moderate; 15-21 severe): 0 Source: Developed by Drs. Eamon Barr, Amarilis Greenberg, Ricky Perez and colleagues, with an educational julio from [employer]. Review of Systems Const Denies chills, Denies fatigue, Denies fever(s), Denies headache(s) and Denies malaise Eyes Denies blurry vision, Denies change in vision, Denies irritation and Denies itchy eyes ENT Denies dysphagia, Denies dizziness, Denies otalgia, Denies headache(s), Denies nasal congestion, Denies neck pain, Denies odynophagia, Denies sinus pain and Denies sore throat Card Denies chest pain, Denies rapid heart rate, Denies irregular heart rhythm, Denies palpitations and Denies dyspnea Resp Denies chest congestion, Denies cough, Denies dyspnea and Denies wheezing GI Denies abdominal pain, Denies bloating, Denies constipation, Denies dysphagia, Denies heartburn, Denies diarrhea, Denies nausea, Denies odynophagia and Denies vomiting Denies hematuria, Denies urinary frequency, Reports menorrhagia, Denies dysuria, Denies urinary incontinence and Denies urinary urgency Musc Denies back pain, Denies arthralgias, Denies joint swelling, Denies muscle weakness and Denies neck pain Skin/Breast Denies breast pain, Denies breast mass, Denies change in pigmentation, Denies lesions, Reports rash (on fingers - see HPI) and Denies unusual bruising Neuro Denies dizziness, Denies headache(s) and Denies paresthesias Psych Denies anxiety and Denies depression Endo Denies fatigue and Denies palpitations [place]/Lymph Denies easy bruising Aller/Immun Denies itchy eyes and Denies wheezing Physical exam (Primary Care) Vital Signs: Last Vital Signs Pulse 80 05/07/24 09:03 BP 120/86 05/07/24 09:03 Pulse Ox 99 05/07/24 09:03 Oxygen Delivery Method Room Air 05/07/24 09:03 BMI result Body Mass Index 32.1 Tobacco/Smoking Status: Tobacco use Status Tobacco use date assessed 05/07/24 05/07/24 09:09 Patient Tobacco Use Status Former Tobacco user 05/07/24 09:09 Tobacco use type Cigarette 05/07/24 09:09 e-Cigarette/Vaping Use Never Used 05/07/24 09:09 PHQ-9: PHQ-9 Score PHQ-9: Total score 0 05/07/24 09:31 Depression Screening Interpretation: Negative Thrive Assessment: Date of Thrive Assessment Date Thrive assessed 05/07/24 05/07/24 09:09 Currently or been in a relationship where the following occur: No concerns reported Const General: no acute distress, alert and awake Orientation/consciousness: patient oriented x3 HENMT Head: Yes normocephalic and Yes atraumatic Ears: external ears normal, TM's normal bilaterally and EAC's normal General nose exam: No nasal discharge present Face and sinus: Yes normal facial exam and Yes sinuses nontender Teeth and gingiva: dentition normal Throat: Yes posterior oropharynx normal and Yes tonsils normal (no TP congestion) Eyes Eyelids: Yes eyelids normal Conjunctivae: conjunctivae normal Pupils: Equal, round and reactive pupils present EOM: EOMs intact bilaterally Neck Neck: Yes no lymphadenopathy and Yes supple Thyroid: Thyroid normal Resp Auscultation: clear to auscultation bilaterally, no rales and no wheezes Cardio Rate: regular rate Rhythm: regular rhythm Heart sounds: no murmurs GI Palpation (GI): Soft to palpation, nontender and No hepatosplenomegaly present Auscultation: normal bowel sounds General: Yes no CVA tenderness Back/Spine/Pelvis Back: no CVA tenderness Thoracic/Lumbar Spine: thoracic and lumbar spine normal to inspection Skin Lesions: no lesions Rashes: rashes noted (few scaling rash around the edges of nails on some fingers on both hands) Neuro General: patient oriented x3, moves all extremities, no focal motor deficits and CN's II-XI intact bilaterally Cranial nerves: Yes Equal, round and reactive pupils present Cognition (Neuro): normal cognition Gait exam (Neuro): Normal gait present Extrem General: Yes no clubbing, cyanosis or edema Coding Level of Care Code Est Pt Prev Care 18-39y(69315) Diagnoses Annual physical exam Z00.00 Mild intermittent asthma without complication J45.20 Asthma severity: mild Asthma persistence: intermittent Asthma complication type: uncomplicated Migraine without status migrainosus, not intractable, unspecified migraine type G43.909 Migraine type: unspecified Status migrainosus presence: without status migrainosus Intractability: not intractable Pure hypercholesterolemia E78.00 Seasonal allergic rhinitis due to pollen J30.1 Allergic rhinitis trigger: pollen Allergic rhinitis seasonality: seasonal Eczema, unspecified type L30.9 Eczema type: unspecified Bee sting allergy Z91.030 Needlestick injury due to hypodermic needle W46.0XXA Menorrhagia with regular cycle N92.0 Menorrhagia type: with regular cycle Anxiety and depression F41.9; F32.9 Obesity (BMI 30-39.9) E66.9 Assessment & Plan Assessment & Plan (1) Annual physical exam: Code(s): Z00.00 - Encounter for general adult medical examination without abnormal findings Category: Medical Plan: Check labs She is up-to-date with her cancer screenings at this time - she is also scheduled for hysterectomy at [facility] next week (2) Asthma: Code(s): J45.909 - Unspecified asthma, uncomplicated Category: Medical Qualifiers: Asthma severity: mild Asthma persistence: intermittent Asthma complication type: uncomplicated Qualified Code(s): J45.20 - Mild intermittent asthma, uncomplicated Plan: Stable/controlled Continue Albuterol HFA 1 to 2 inhalations every 6 hours as needed - states that she hardly has to use her inhaler at all lately (3) Migraine: Code(s): G43.909 - Migraine, unspecified, not intractable, without status migrainosus Category: Medical Qualifiers: Migraine type: unspecified Status migrainosus presence: without status migrainosus Intractability: not intractable Qualified Code(s): G43.909 - Migraine, unspecified, not intractable, without status migrainosus Plan: Stable Reinforced avoidance of migraine triggers She was taking Fioricet or OTC migraine headache meds PRN for symptomatic relief, and that she's only had about 1 to 2 episodes of headaches a month and they are mostly mild and she has not needed to take any Rx for them lately (4) Pure hypercholesterolemia: Code(s): E78.00 - Pure hypercholesterolemia, unspecified Category: Medical Plan: Reinforced low cholesterol diet Her LDL cholesterol was at 129 mg/dl when last checked a few years ago in 2020 and she has not had a chance to get these rechecked since Will send her for labs to recheck her fasting lipids JESSICA (5) Allergic rhinitis: Code(s): J30.9 - Allergic rhinitis, unspecified Category: Medical Qualifiers: Allergic rhinitis trigger: pollen Allergic rhinitis seasonality: seasonal Qualified Code(s): J30.1 - Allergic rhinitis due to pollen Plan: Continue Loratadine 10 mg QD PRN (6) Eczema: Code(s): L30.9 - Dermatitis, unspecified Category: Medical Qualifiers: Eczema type: unspecified Qualified Code(s): L30.9 - Dermatitis, unspecified Plan: Mostly over the fingers Will start her on Triamcinolone 0.5% cream to apply to rash on her fingers QD PRN (7) Bee sting allergy: Code(s): Z91.030 - Bee allergy status Category: Medical Plan: Patient is again cautioned that avoidance is still the best prevention and reminded that she needs to keep her Epipen injector with her at all times (8) Needlestick injury due to hypodermic needle: Code(s): W46.0XXA - Contact with hypodermic needle, initial encounter Plan: Patient initially tested negative for HIV and hepatitis She was informed subsequently that the person she was drawing blood from during her accidentaly needlestick injury also tested negative for HIV and hepatitis so she stopped taking her PrEP Have advised patient that she should still get herself tested again in 4 to 6 months to ensure that she is completely free from any potential issues arising from her needlestick injury (9) Heavy menstrual bleeding: Code(s): N92.0 - Excessive and frequent menstruation with regular cycle Category: Medical Qualifiers: Menorrhagia type: with regular cycle Qualified Code(s): N92.0 - Excessive and frequent menstruation with regular cycle Plan: Patient states that she is currently scheduled for hysterectomy at [facility] next week on 05/14/2024 Follow up with gynecology as scheduled (10) Anxiety and depression: Code(s): F41.9 - Anxiety disorder, unspecified; F32.9 - Major depressive disorder, single episode, unspecified Category: Medical Plan: Follow up with therapist/counselor regularly as scheduled She used to take Escitalopram but states that she stopped taking this a few years ago and now just smokes some marijuana when needed to help control her anxiety (11) Obesity (BMI 30-39.9): Code(s): E66.9 - Obesity, unspecified Category: Medical Plan: Reinforced diet/exercise as tolerated/lose weight Plan Follow up in 6 months Orders: Orders Complete Blood Count Auto Diff Today D64.9 - Anemia, unspecified, Z00.00 - Encounter for general adult medical examination without abnormal findings TSH reflex Free T4 Today E78.00 - Pure hypercholesterolemia, unspecified, Z00.00 - Encounter for general adult medical examination without abnormal findings UA CC w/rflx Micro + Cult Today R30.0 - Dysuria, Z00.00 - Encounter for general adult medical examination without abnormal findings Comprehensive Bliss. Panel Fast Today E78.00 - Pure hypercholesterolemia, unspecified, Z00.00 - Encounter for general adult medical examination without abnormal findings Lipid Panel Today E78.00 - Pure hypercholesterolemia, unspecified, Z00.00 - Encounter for general adult medical examination without abnormal findings Vitamin D 25-OH Total Today E55.9 - Vitamin D deficiency, unspecified, Z00.00 - Encounter for general adult medical examination without abnormal findings Medications: New triamcinolone acetonide 0.5% 1 appl topical DAILY PRN 15 grams 3RF eczema on hands/fingers
== END 2024-05-07 09:36 | disposition home or self-care (01) ==
PROVIDERS: PCP Internal Medicine; Visit Provider Internal Medicine
DX: Z00.00 Encounter for general adult medical examination without abnormal findings (principal); J45.20 Mild intermittent asthma, uncomplicated; E66.811 Obesity, class 1; Z68.32 Body mass index [BMI] 32.0-32.9, adult; G43.909 Migraine, unspecified, not intractable, without status migrainosus; E78.00 Pure hypercholesterolemia, unspecified; J30.1 Allergic rhinitis due to pollen; L30.9 Dermatitis, unspecified; Z91.030 Bee allergy status; W46.0XXA Contact with hypodermic needle, initial encounter; N92.0 Excessive and frequent menstruation with regular cycle; F41.9 Anxiety disorder, unspecified

== ENCOUNTER 2025-05-13 08:51 | Outpatient (REF) | payer OTHER, SELFPAY ==
--- NOTE | ~2025-05-13 | XR_ITS ---
EXAMINATION: XR TOES 2 OR MORE VIEWS RIGHT HISTORY: M79.674 - Pain in right toe(s) COMPARISON: There are no prior studies available for comparison. FINDINGS: Three views of the right great toe are submitted. Osseous mineralization is normal. There is no fracture or dislocation. The joint spaces are preserved. There is soft tissue swelling over the interphalangeal joint. XR/XR toe RT min 2V IMPRESSION: Soft tissue swelling over the interphalangeal joint. No osseous abnormality is identified. Electronically signed by: Eamon Ennis MD 05/13/2025 10:50 AM EDT
[2025-05-13 09:54] LABS: MANUAL DIFF FLAG NO
[2025-05-13 10:33] LABS: Hematocrit 42.2 % (37.0-47.0); Hemoglobin 14.0 g/dl (12.0-16.0); Imm Gran Abs Auto 0.04 X10*3/uL (0.00-0.03); Imm Gran Pct Auto 0.5 % (0.0-0.4); Lymphocytes Absolute Auto 3.1 X10*3/uL (1.2-4.9); Mean Corpuscular HGB Conc 33.2 g/dl (31.0-35.0); Mean Corpuscular Hemoglobin 30.8 pg (27.0-33.0); Mean Corpuscular Volume 93.0 fL (80.0-98.0); NRBC Abs Auto 0.000 X10*3/uL (0.0-0.012); NRBC Pct Auto 0.0 /100WBC (0.0-0.2); Platelet Count 263 X10*3/uL (160-400); Red Blood Count 4.54 X10*6/uL (4.20-5.50); White Blood Count 8.6 X10*3/uL (4.8-10.8)
--- OUTSIDE RECORDS SUMMARY | 2025-05-13 10:43 | XMS_ITS | Clinical Summary ---
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 Role Phone Unavailable Primary Care Provider Unavailabl e Immunizations Immunization Administration Dates Next Due DTP 07/30/1999,03/30/1990,1989 ,1989 Hib (PRP-T) 06/29/1990 IPV 07/30/1999,1989,1989 MMR 03/30/1990 Unknown Vaccine 03/30/1990 Social History Tobacco Use Types Packs/Day Years Used Date Smoking Tobacco: Never Assessed Comments Unknown Sex and Gender Information Value Date Recorded Sex Assigned at Not on file Legal Sex Female 4:15 PM EDT Gender Identity Not on file Sexual Orientation Not on file Plan of Treatment Health Maintenance Due Date Last Done Comments Varicella Vaccines (1 of 2 - 13+ 2-dose series) 2002 Hepatitis B Vaccines (1 of 3 - 19+ 3-dose series) 2008 DTaP,Tdap,and Td Vaccines (5 - Tdap) 07/30/2009 07/30/1999, 03/30/1990, 1989, Additional history exists HPV Vaccines (1 - 3-dose SCDM series) 2016 Influenza Vaccines (#1) 2025 COVID-19 Vaccine ( season) 2025 MMR Vaccines Completed 03/30/1990 HIB Vaccines Completed 06/29/1990 IPV Vaccines Completed 07/30/1999, 09/30, 1989 Hepatitis A Vaccines Aged Out No long er eligible based on patient's age to complete this topic Men B Vaccine Aged Out No longer elig ible based on patient's age to complete this topic Meningococcal Vaccine Aged Out No willow seth eligible based on patient's age to complete this topic Pneumococcal Vaccine Aged Out No long er eligible based on patient's age to complete this topic
--- OUTSIDE RECORDS SUMMARY | 2025-05-13 10:43 | XMS_ITS | Encounter Summary ---
Author Organization [facility] Address [address] [place], [place] [id number] Phone Care Team Providers Care Department Clerk Name Role Phone Unavailable Primary Care Provider Unavailabl e Encounter Details Date Type Department Care Team (Late st Contact Info) Description 02/18/2016 Documentation [facility] [place] [facility] [address] [place] [address] Family Medicine, Physician [facility]ly [facility] [place] [address] Social History Tobacco Use Types Packs/Day Years Used Date Smoking Tobacco: Never Assessed Comments Unknown Sex and Gender Information Value Date Recorded Sex Assigned at Not on file Legal Sex Female 4:15 PM EDT Gender Identity Not on file Sexual Orientation Not on file documented as of this encounter Plan of Treatment Not on file documented as of this encounter Visit Diagnoses Not on filedocumented in this encounter
[2025-05-13 10:44] LABS: Appearance Urine Clear; Glucose Urine UA Negative (Negative); PH 7.0 (5.0-9.0); Specific Gravity - Urine 1.010 (1.005-1.025); UMIC TRIGGER UACC YES
[2025-05-13 11:28] LABS: Alanine Aminotransferase 17 U/L (0-31); Albumin Level 4.4 g/dL (3.5-5.0); Alkaline Phosphatase 63 U/L (39-117); Anion Gap 11 (12-20); Aspartate Amino Transferase 21 U/L (5-31); Blood Urea Nitrogen 7 mg/dL (9-16); Calcium 9.1 mg/dL (8.4-10.2); Carbon Dioxide 26 mmol/L (22-29); Chloride 110 mmol/L (96-108); Cholesterol 201 mg/dL (<200); Estimated Glomerular Filt Rate > 60; HDL Cholesterol 41 mg/dL (>40); Potassium 3.3 mmol/L (3.3-5.1); Sodium 144 mmol/L (135-145); Total Protein 7.1 g/dL (6.5-8.0); Triglycerides 130 mg/dL (<150)
== END 2025-05-13 08:52 | disposition home or self-care (01) ==
LOC: HO.LAB 08:51
PROVIDERS: PCP Internal Medicine; Visit Provider Internal Medicine
DX: Z00.00 Encounter for general adult medical examination without abnormal findings (principal); E78.00 Pure hypercholesterolemia, unspecified; D64.9 Anemia, unspecified; E55.9 Vitamin D deficiency, unspecified; M79.674 Pain in right toe(s); R30.0 Dysuria; E78.2 Mixed hyperlipidemia; J45.20 Mild intermittent asthma, uncomplicated; G43.909 Migraine, unspecified, not intractable, without status migrainosus; J30.1 Allergic rhinitis due to pollen; L30.9 Dermatitis, unspecified; F41.9 Anxiety disorder, unspecified; F32.9 Major depressive disorder, single episode, unspecified; E66.9 Obesity, unspecified; Z91.030 Bee allergy status; Z79.899 Other long term (current) drug therapy; Z68.31 Body mass index [BMI] 31.0-31.9, adult
CPT/HCPCS: 36415; 73660; 80053; 80061; 81001; 82306; 84443; 85025; 96127

== ENCOUNTER 2025-05-13 08:51 | Outpatient (AMB) | payer OTHER, SELFPAY ==
[2025-05-13 09:03] VITALS: BP 110/80; PULSE 74; O2SAT 99; BMI 31.6
--- NOTE | 2025-05-13 09:03 | MHC.PC.OV ---
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 Accompanied by: Self / Same As Patient Allergies bee sting Allergy (Severe, Uncoded 05/13/25 09:21) Anaphylaxis Medication List - Last Reconciled 05/13/25 by Karl Marquez MD albuterol sulfate 90 mcg/actuation (ProAir HFA) 2 puffs inhalation Q6H PRN 30 days diclofenac sodium 75 mg PO BID 10 days epinephrine (EpiPen 2-Heladio) 0.3 mg (0.3 mL) IM Q4H PRN ibuprofen 600 mg PO TID PRN loratadine 10 mg PO DAILY PRN 90 days triamcinolone acetonide 0.5% 1 appl topical DAILY PRN Tobacco use date assessed: 05/13/25 Dental Screening Dental Screen Date: 05/13/25 Did you have a dental visit in the last 12 months?: Yes Did you have a dental problem in the last 6 months where you did not have access to dental care?: No Was dental information given to patient?: Patient has dentist HPI annual exam HPI Details Patient comes in today for her annual physical examination States that she feels okay except for what appears to be a painful lesion/nodule? on her right big toe that she says has been present since January (about 3 months now) She denies any injury or trauma to her toe and recalls that this just came up out of nowhere when she was in [place] back then She denies any headaches or dizziness Denies any chest pains, no SOB No nausea/vomiting, no abdominal pain No change in bowel habits noted Denies any acute urinary symptoms States that she had a complete hysterectomy late last year (May 2024) at [facility] for adenomyosis and no longer needs to keep up with her yearly pap smear or gynecology exam [facility] Medical History (Updated 05/13/25 @ 09:28 by Karl Marquez MD) Mixed hyperlipidemia Bee sting allergy Pure hypercholesterolemia Allergic rhinitis WILFREDO II (cervical intraepithelial neoplasia II) Anxiety and depression Migraine Lumbar arthropathy Obesity (BMI 30-39.9) Asthma Vitamin D deficiency Surgical History (Updated 05/13/25 @ 09:28 by Karl Marquez MD) History of hysterectomy for benign disease History of tubal ligation History of excision of mass History of nasal polypectomy History of D&C Family History Father Hypertension CVD (cardiovascular disease) Lymphoma Past heart attack Mother Hypertension Epilepsy Son ADHD Brother Epilepsy Sister Epilepsy Maternal Grandmother Diabetes Paternal Grandmother No problems noted. Maternal Uncle Diabetes Maternal Aunt Diabetes Paternal Aunt Diabetes Breast cancer Daughter In good health Social History Housing: House Alcohol intake: current Alcohol intake frequency: holidays/special occasions only Patient Tobacco Use Status: Former Tobacco user Tobacco use type: Cigarette e-Cigarette/Vaping Use: Never Used Second Hand Smoke Exposure: Yes Substance Use Type: Marijuana service: No Current occupational status: employed ([employer]) Cognitive needs: No Hearing needs: No Vision needs: Yes Questionnaire PHQ-9 Over the last 2 weeks, how often have you been bothered by any of the following problems? 1. Little interest or pleasure in doing things: not at all 2. Feeling down, depressed, or hopeless: not at all 3. Trouble falling or staying asleep, or sleeping too much: several days 4. Feeling tired or having little energy: several days 5. Poor appetite or overeating: not at all 6. Feeling bad about yourself - or that you are a failure or have let yourself or your family down: not at all 7. Trouble concentrating on things, such as reading the newspaper or watching television: not at all 8. Moving or speaking so slowly that other people could have noticed. Or the opposite - being so fidgety or restless that you have been moving around a lot more than usual: not at all 9. Thoughts that you would be better off or of hurting yourself in some way: not at all Total score: 2 Depression Screening Interpretation: Negative Depression Screening Done: Yes 24520 - PHQ-9 Billing: Yes Source: Developed by Drs. Eamon Barr, Amarilis Greenberg, Ricky Perez and colleagues, with an educational julio from [employer]. Thrive Questionnaire Date Thrive assessed: 05/13/25 I am a: Patient What is your living situation today?: I have a steady place to live Within the past 12 months, did the food you bought not last and you didn't have the money to get more?: Never true Within the past 12 months, did you worry whether your food would run out before you got money to buy more?: Never true Do you have trouble paying for medicines?: No Do you have trouble getting transportation to medical appointments?: No Do you have trouble paying your heating and electricity bill?: No Do you have trouble taking care of your child, family member or friend?: No Do you have trouble with day-to-day activities such as bathing, preparing meals, shopping, managing finances, etc.?: No Are you currently unemployed and looking for a job?: No Are you interested in more education?: No Please select the resources that you would like help with: None Currently or been in a relationship where the following occur: No concerns reported THRIVE Score: 0 AUDIT C Alcohol Use Questionnaire (AUDIT-C) 1. How often do you have a drink containing alcohol?: Monthly or less 2. How many drinks containing alcohol do you have on a typical day when you are drinking?: 3 or 4 3. How often do you have six or more drinks on one occasion?: Less than monthly Total Score: 3 Score Reviewed/Action Taken: Yes RODNEY-7 AMB Questionnaire RODNEY-7 Date RODNEY - 7 assessed: 05/13/25 Feeling nervous, anxious, or on edge: 0 = Not at all Not being able to stop or control worryin = Not at all Worrying too much about different things: 0 = Not at all Trouble relaxin = Not at all Being so restless that it is hard to sit still: 0 = Not at all Becoming easily annoyed or irritable: 1 = Several days Feeling afraid as if something awful might happen: 0 = Not at all Total RODNEY-7 score (0-4 normal; 5-9 mild; 10-14 moderate; 15-21 severe): 1 Source: Developed by Drs. Eamon Barr, Amarilis Greenberg, Ricky Perez and colleagues, with an educational julio from [employer]. Review of Systems Const Denies chills, Denies fatigue, Denies fever(s), Denies headache(s) and Denies malaise Eyes Denies blurry vision, Denies change in vision, Denies irritation and Denies itchy eyes ENT Denies dysphagia, Denies dizziness, Denies otalgia, Denies headache(s), Denies nasal congestion, Denies neck pain, Denies odynophagia, Denies sinus pain and Denies sore throat Card Denies chest pain, Denies rapid heart rate, Denies irregular heart rhythm, Denies palpitations and Denies dyspnea Resp Denies chest congestion, Denies cough, Denies dyspnea and Denies wheezing GI Denies abdominal pain, Denies bloating, Denies constipation, Denies dysphagia, Denies heartburn, Denies diarrhea, Denies nausea, Denies odynophagia and Denies vomiting Denies hematuria, Denies urinary frequency, Denies dysuria, Denies urinary incontinence and Denies urinary urgency Musc Details: (+) painful lesion on the right big toe Denies back pain, Denies arthralgias, Denies joint swelling, Denies muscle weakness and Denies neck pain Skin/Breast Denies breast pain, Denies breast mass, Denies change in pigmentation, Denies lesions, Denies rash and Denies unusual bruising Neuro Denies dizziness, Denies headache(s) and Denies paresthesias Psych Denies anxiety and Denies depression Endo Denies fatigue and Denies palpitations [place]/Lymph Denies easy bruising Aller/Immun Denies itchy eyes and Denies wheezing Physical exam (Primary Care) Vital Signs: Last Vital Signs Pulse 74 05/13/25 09:03 BP 110/80 05/13/25 09:03 Pulse Ox 99 05/13/25 09:03 Oxygen Delivery Method Room Air 05/13/25 09:03 BMI result Body Mass Index 31.6 Tobacco/Smoking Status: Tobacco use Status Tobacco use date assessed 05/13/25 05/13/25 09:11 Patient Tobacco Use Status Former Tobacco user 05/13/25 09:11 Tobacco use type Cigarette 05/13/25 09:11 e-Cigarette/Vaping Use Never Used 05/13/25 09:11 PHQ-9: PHQ-9 Score PHQ-9: Total score 2 05/13/25 09:11 Depression Screening Interpretation: Negative Thrive Assessment: Date of Thrive Assessment Date Thrive assessed 05/13/25 05/13/25 09:11 Currently or been in a relationship where the following occur: No concerns reported Const General: no acute distress, alert and awake Orientation/consciousness: patient oriented x3 HENMT Head: Yes normocephalic and Yes atraumatic Ears: external ears normal, TM's normal bilaterally and EAC's normal General nose exam: No nasal discharge present Face and sinus: Yes normal facial exam and Yes sinuses nontender Teeth and gingiva: dentition normal Throat: Yes posterior oropharynx normal and Yes tonsils normal (no TP congestion) Eyes Eyelids: Yes eyelids normal Conjunctivae: conjunctivae normal Pupils: Equal, round and reactive pupils present EOM: EOMs intact bilaterally Neck Neck: Yes no lymphadenopathy and Yes supple Thyroid: Thyroid normal Resp Auscultation: clear to auscultation bilaterally, no rales and no wheezes Cardio Rate: regular rate Rhythm: regular rhythm Heart sounds: no murmurs GI Palpation (GI): Soft to palpation, nontender and No hepatosplenomegaly present Auscultation: normal bowel sounds General: Yes no CVA tenderness Back/Spine/Pelvis Back: no CVA tenderness Thoracic/Lumbar Spine: thoracic and lumbar spine normal to inspection Skin Lesions: no lesions Rashes: no rashes Neuro General: patient oriented x3, moves all extremities, no focal motor deficits and CN's II-XI intact bilaterally Cranial nerves: Yes Equal, round and reactive pupils present Cognition (Neuro): normal cognition Gait exam (Neuro): Normal gait present Extrem General: Yes no clubbing, cyanosis or edema Right lower extremity: foot ((+) small nodule/swelling? on the dorsum of the R big toe) Coding Level of Care Code Est Pt Prev Care 18-39y(59775) Diagnoses Annual physical exam Z00.00 Pain of right great toe M79.674 Mixed hyperlipidemia E78.2 Mild intermittent asthma without complication J45.20 Asthma severity: mild Asthma persistence: intermittent Asthma complication type: uncomplicated Migraine without status migrainosus, not intractable, unspecified migraine type G43.909 Migraine type: unspecified Status migrainosus presence: without status migrainosus Intractability: not intractable Seasonal allergic rhinitis due to pollen J30.1 Allergic rhinitis trigger: pollen Allergic rhinitis seasonality: seasonal Eczema, unspecified type L30.9 Eczema type: unspecified Bee sting allergy Z91.030 Anxiety and depression F41.9; F32.9 Obesity (BMI 30-39.9) E66.9 Additional Codes PHQ-9 - 37445 - PHQ-9 Billing: Yes ([id number]) Assessment & Plan Assessment & Plan (1) Annual physical exam: Code(s): Z00.00 - Encounter for general adult medical examination without abnormal findings Category: Medical Plan: Check labs JESSICA to complete her annual exam Patient states that she had a complete hysterectomy late last year (May 2024) at [facility] for adenomyosis and no longer needs to keep up with her yearly pap smear or gynecology exam (2) Pain of right great toe: Code(s): M79.674 - Pain in right toe(s) Category: Medical Plan: Will send patient for x-rays of the right big toe for further evaluation Will consider referring her to podiatry but we will see how her x-rays come out first (3) Mixed hyperlipidemia: Code(s): E78.2 - Mixed hyperlipidemia Category: Medical Plan: Reinforced low cholesterol diet Have reminded patient that her cholesterol levels were elevated when they were last checked a year ago in April 2024 Will have her recheck her fasting lipids JESSICA for follow up (4) Asthma: Code(s): J45.909 - Unspecified asthma, uncomplicated Category: Medical Qualifiers: Asthma severity: mild Asthma persistence: intermittent Asthma complication type: uncomplicated Qualified Code(s): J45.20 - Mild intermittent asthma, uncomplicated Plan: Controlled Continue Albuterol HFA 1 to 2 inhalations every 6 hours as needed - states that she hardly has to use her inhaler at all lately (5) Migraine: Code(s): G43.909 - Migraine, unspecified, not intractable, without status migrainosus Category: Medical Qualifiers: Migraine type: unspecified Status migrainosus presence: without status migrainosus Intractability: not intractable Qualified Code(s): G43.909 - Migraine, unspecified, not intractable, without status migrainosus Plan: Stable Reinforced avoidance of migraine triggers She was taking Fioricet or OTC migraine headache meds PRN for symptomatic relief, and that she's only had about 1 to 2 episodes of headaches a month and they are mostly mild and she has not needed to take any Rx for headaches lately (6) Allergic rhinitis: Code(s): J30.9 - Allergic rhinitis, unspecified Category: Medical Qualifiers: Allergic rhinitis trigger: pollen Allergic rhinitis seasonality: seasonal Qualified Code(s): J30.1 - Allergic rhinitis due to pollen Plan: Continue Loratadine 10 mg QD PRN (7) Eczema: Code(s): L30.9 - Dermatitis, unspecified Category: Medical Qualifiers: Eczema type: unspecified Qualified Code(s): L30.9 - Dermatitis, unspecified Plan: Mostly over the fingers Continue Triamcinolone 0.5% cream to apply to rash on her fingers QD PRN (8) Bee sting allergy: Code(s): Z91.030 - Bee allergy status Category: Medical Plan: Patient is again cautioned that avoidance is still the best prevention and reminded that she needs to keep her Epipen injector with her at all times (9) Anxiety and depression: Code(s): F41.9 - Anxiety disorder, unspecified; F32.9 - Major depressive disorder, single episode, unspecified Category: Medical Plan: Follow up with therapist/counselor regularly as scheduled She used to take Escitalopram but states that she stopped taking this a few years ago and now just smokes some marijuana when needed to help control her anxiety (10) Obesity (BMI 30-39.9): Code(s): E66.9 - Obesity, unspecified Category: Medical Plan: Reinforced diet/exercise as tolerated/lose weight Plan Follow up in 6 months Orders: Orders XR toe RT min 2V Today M79.674 - Pain in right toe(s) UA CC w/rflx Micro + Cult Today R30.0 - Dysuria, Z00.00 - Encounter for general adult medical examination without abnormal findings Complete Blood Count Auto Diff Today D64.9 - Anemia, unspecified, Z00.00 - Encounter for general adult medical examination without abnormal findings Comprehensive [place]. Panel Fast Today E78.00 - Pure hypercholesterolemia, unspecified, Z00.00 - Encounter for general adult medical examination without abnormal findings Lipid Panel Today E78.00 - Pure hypercholesterolemia, unspecified, Z00.00 - Encounter for general adult medical examination without abnormal findings TSH reflex Free T4 Today E78.00 - Pure hypercholesterolemia, unspecified, Z00.00 - Encounter for general adult medical examination without abnormal findings Vitamin D 25-OH Total Today E55.9 - Vitamin D deficiency, unspecified, Z00.00 - Encounter for general adult medical examination without abnormal findings Uric Acid Today M79.674 - Pain in right toe(s)
== END 2025-05-13 09:33 | disposition home or self-care (01) ==
LOC: HO.HMCH 08:52
PROVIDERS: PCP Internal Medicine; Visit Provider Internal Medicine
DX: Z00.00 Encounter for general adult medical examination without abnormal findings (principal); M79.674 Pain in right toe(s); Z68.31 Body mass index [BMI] 31.0-31.9, adult; E66.9 Obesity, unspecified; E78.2 Mixed hyperlipidemia; J45.20 Mild intermittent asthma, uncomplicated; G43.909 Migraine, unspecified, not intractable, without status migrainosus; J30.1 Allergic rhinitis due to pollen; L30.9 Dermatitis, unspecified; Z91.030 Bee allergy status; F41.9 Anxiety disorder, unspecified; F32.9 Major depressive disorder, single episode, unspecified

== ENCOUNTER → 2025-05-13 09:55 | Outpatient (BNV) | payer OTHER, SELFPAY | PROVIDERS: PCP Internal Medicine; Visit Provider Radiology Diagnostic Radiology | DX: M79.674 Pain in right toe(s) (principal) | CPT/HCPCS: 73660 ==